=== PATIENT | female | born 1970 | race Caucasian/White ===

== ENCOUNTER 2023-01-14 05:29 | Emergency (ER) | payer BC ==
[2023-01-14] MEDS ORDERED: HYDROcodone/Acetaminophen 5/325 mg Tablet ONE (08:33)
== END 2023-01-14 08:41 | disposition home or self-care (01) ==
LOC: MADERS 05:29
DX: S93.114A Dislocation of interphalangeal joint of right lesser toe(s), initial encounter (principal); W22.8XXA Striking against or struck by other objects, initial encounter
CPT/HCPCS: 28600